=== PATIENT | male | born 1990 | race Caucasian/White ===

== ENCOUNTER 2016-12-01 11:43 | Emergency (ER) | payer OTHER ==
[~2016-12-01] VITALS: Ht 172.7 cm; Wt 81.7 kg
[2016-12-01 11:46] VITALS: BP 124/76
[2016-12-01] MEDS ORDERED: FLUORESCEIN OPHTHALMIC 1 MG STRIP ONE (11:47)
[2016-12-01] MEDS ORDERED: PROPARACAINE OPHTH 0.5%, 15ML ONE (11:47)
== END 2016-12-01 12:47 | disposition home or self-care (01) ==
LOC: ED 12:41
DX: S05.01XA Injury of conjunctiva and corneal abrasion without foreign body, right eye, initial encounter (principal); X58.XXXA Exposure to other specified factors, initial encounter; Y93.89 Activity, other specified; Y92.89 Other specified places as the place of occurrence of the external cause; Y99.8 Other external cause status
CPT/HCPCS: 99283